=== PATIENT | female | born 1975 | race Asian ===

== ENCOUNTER 2016-08-31 18:42 | Emergency (ER) | payer OTHER ==
[~2016-08-31] VITALS: Ht 162.6 cm; Wt 67.1 kg
[2016-08-31 18:42] VITALS: BP_SYST 142
--- NOTE | 2016-08-31 18:42 | NUR ---
Placed in room 06. Placed on cardiac monitor technician, blood pressure machine and pulse oximeter. To gown for exam. Side rails up.
--- NOTE | 2016-08-31 18:52 | NUR ---
Dr. Rivas at bedside for evaluation
--- NOTE | 2016-08-31 18:55 | NUR ---
PT. TO ER AAOx4 CAME IN FROM HOME C/O PALPITATIONS FOR A WEEK NOW SATATES THAT IT HAS BEEN WORSE TODAY, STATES SHE WAS FEELING SOB EARLIER BUT IS OKAY NOW, NO CHEST PAIN AT THIS POINT JUST PRESSURE, STATES PAIN 3/10 LEFT ARM, STATES SHE FEELS FATIGUE AND WEAK, DENIES N/V DENIES HEADACHE
--- NOTE | 2016-08-31 19:00 | NUR ---
ASSUMED PT. CARE PT. IN BED RESTING REQUESTED TO TAKE HER OFF THE MONITOR FOR HER PRAYER TIME, LEFT PT. IN THE ROOM FOR HER PRAYER REQUESTED WITH HER FAMILY
--- NOTE | 2016-08-31 19:00 | NUR ---
DR. LEE AT [facility] EXAMINING THE PT.
--- NOTE | 2016-08-31 19:30 | NUR ---
PT. BACK ON CLINICAL NURSING MANAGER
[2016-08-31 19:42] LABS: CALCIUM 8.3 mg/dL (8.4-11.0); CREATININE 1.04 mg/dL (0.55-1.30); POTASSIUM 3.8 mmol/L (3.5-5.1)
[2016-08-31 19:48] LABS: MEAN CORPUSCULAR HGB CONC 33 % (32-36); WHITE BLOOD COUNT (AUTO) 10.9 K/uL (4.8-10.8)
[2016-08-31 19:51] LABS: BASOPHILS # (AUTO) 0.1 K/uL (0.0-0.2); BASOPHILS % (AUTO) 0.9 % (0.0-2.0); EOSINOPHILS # (AUTO) 0.5 K/uL (0.0-0.4); HEMATOCRIT 32.8 % (36-48); HEMOGLOBIN 10.8 g/dL (12.0-16.0); LYMPHOCYTES # (AUTO) 2.7 K/uL (1.0-5.5); MEAN CORPUSCULAR HEMOGLOBIN 22 pg (27-31); MEAN CORPUSCULAR VOLUME 66 fL (79.0-98.0); MONOCYTES # (AUTO) 0.8 K/uL (0.0-1.0); MONOCYTES % (AUTO) 7.6 % (1.7-9.3); NEUTROPHILS # (AUTO) 6.8 K/uL (1.8-7.7); NEUTROPHILS % (AUTO) 61.5 % (40.0-70.0); PLATELET COUNT (AUTO) 327 K/uL (130-430); RED CELL DISTRIBUTION WIDTH 16.5 % (9.0-15.0)
[2016-08-31 19:57] LABS: ALBUMIN 3.3 g/dL (3.4-4.8); THYROID STIMULATING HORMONE 1.48 uIu/mL (0.34-4.82); TOTAL BILIRUBIN 0.3 mg/dL (0.0-1.0); TOTAL PROTEIN, SERUM 7.4 g/dL (6.4-8.3)
--- NOTE | 2016-08-31 20:30 | NUR ---
DR. CABRERA AT BEDSIDE TALKING TO THE PT. AND FAMILY ABOUT PLAN OF CARE
--- NOTE | 2016-08-31 21:56 | NUR ---
Patient given written and verbal discharge instructions and verbalizes understanding. ER MD DR. CABRERA discussed with patient the results and treatment provided. Patient in stable condition. ID arm band removed. NO Rx given. Patient educated on pain management and to follow up with PMD. Pain Scale 0/10 Opportunity for questions provided and answered.
[2016-08-31 21:57] VITALS: BP_SYST 125
== END 2016-08-31 21:56 | disposition home or self-care (01) ==
LOC: SED 18:42
DX: K21.9 Gastro-esophageal reflux disease without esophagitis (principal); E11.9 Type 2 diabetes mellitus without complications; R06.02 Shortness of breath; I10 Essential (primary) hypertension
CPT/HCPCS: 36415; 71010; 80053; 83735-TC; 83880; 84443-TC; 84484; 85025; 93005; 99285